=== PATIENT | male | born 1950 | race Caucasian/White ===

== ENCOUNTER 2016-10-24 15:45 | Emergency (ER) | payer OTHER ==
[~2016-10-24 15:45] MED LIST: Sodium Chloride 0.9% 1,000 ML BAG ONE
[2016-10-24 17:09] LABS: #Basophils 0.1 thou/uL (0.0-0.2); #Eosinphils 0.3 thou/uL (0.0-0.7); #Lymphocytes 3.2 thou/uL (1.20-3.40); #Monocytes 0.7 thou/uL (0.11-0.59); #Neutrophils 4.7 thou/uL (1.40-6.50); %Basophils 1.3 % (0.0-1.0); %Eosinophils 2.9 % (0.0-10.0); %Lymphocytes 35.4 % (21.0-51.0); %Monocytes 7.2 % (0.0-10.0); %Neutrophils 53.1 % (42.0-75.0); Hemoglobin 16.3 g/dL (14.0-18.0); Mean Corpuscular HGB CONC 33.9 g/dL (32.0-36.0); Mean Corpuscular Hemoglobin 29.9 pg (27.0-31.0); Mean Corpuscular Volume 88.3 fl (80.0-94.0); Mean Platelet Volume 6.5 fL (7.4-10.4); Platelet Count 339 thou/uL (130-400); Red Blood Cell (RBC) Count 5.45 mill/uL (4.70-6.10); White Blood Cell (WBC) Count 8.9 thou/uL (4.8-10.8)
[2016-10-24 17:20] LABS: ALT (SGPT) 21 U/L (8-55); AST (SGOT) 14 U/L (5-34); Albumin 4.4 g/dL (3.4-4.8); Alkaline Phosphatase 123 U/L (40-150); Anion Gap 16 mmol/L (10-20); BUN (Urea Nitrogen) 12 mg/dL (8.4-25.7); CK (CPK) 64 U/L (30-200); Calc. Creatinine Clearance 0 mL/min (70-130); Calcium 9.6 mg/dL (7.8-10.44); Carbon Dioxide 27 mmol/L (23-31); Chloride 98 mmol/L (98-107); Estimated GFR-MDRD Greater than 90; Globulin 3.1 g/dL (2.4-3.5); Glucose 103 mg/dL (80-115); Potassium 3.6 mmol/L (3.5-5.1); Protein, Total 7.5 g/dL (5.8-8.1); Sodium 137 mmol/L (136-145)
[2016-10-24 17:28] LABS: CKMB 0.8 ng/mL (0-6.6)
[2016-10-24 18:09] LABS: Bilirubin Negative (Negative); Blood, Urine Negative (Negative); Clarity Cloudy (Clear); Glucose, Urine (Dipstick) Negative (Negative); Leukocyte Negative (Negative); Nitrite Negative (Negative); Protein, Urine (Dipstick) Trace mg/dL (Neg-Trace); Specific Gravity, Urine 1.015 (1.005-1.030); pH, Urine 7.5 (5.0-9.0)
== END 2016-10-24 18:10 | disposition home or self-care (01) ==
LOC: MADERS 15:45
DX: H81.13 Benign paroxysmal vertigo, bilateral (principal); I25.2 Old myocardial infarction; E11.9 Type 2 diabetes mellitus without complications; I10 Essential (primary) hypertension; I73.9 Peripheral vascular disease, unspecified; J44.9 Chronic obstructive pulmonary disease, unspecified; G62.9 Polyneuropathy, unspecified; F17.210 Nicotine dependence, cigarettes, uncomplicated; Z86.73 Personal history of transient ischemic attack (TIA), and cerebral infarction without residual deficits; Z85.038 Personal history of other malignant neoplasm of large intestine; Z92.21 Personal history of antineoplastic chemotherapy; Z79.84 Long term (current) use of oral hypoglycemic drugs; Z79.899 Other long term (current) drug therapy; Z79.02 Long term (current) use of antithrombotics/antiplatelets
CPT/HCPCS: 36416; 80053; 81003; 82550; 82553; 84484; 85025; 93005; 96360; 36415-59; J7050

== ENCOUNTER 2017-07-08 11:10 | Emergency (ER) | payer OTHER ==
[2017-07-08] MEDS ORDERED: Acetaminophen 325 MG TAB ONE (11:32)
[2017-07-08] MEDS ORDERED: HYDROcodone/Acetaminophen 10/325 mg Tablet ONE (11:32)
--- NOTE | 2017-07-08 12:19 | RAD ---
RIGHT HUMERUS 2 VIEWS: History Fall. COMPARISON: None. FINDINGS: No acute displaced fracture or malalignment. There appears to be some mild soft tissue swelling of t he shoulder. Visualized clavicle and ribs are intact. IMPRESSION: No acute displaced fracture. POS: [facility]
== END 2017-07-08 12:10 | disposition home or self-care (01) ==
LOC: MADERS 11:10
DX: S40.011A Contusion of right shoulder, initial encounter (principal); I25.10 Atherosclerotic heart disease of native coronary artery without angina pectoris; I25.2 Old myocardial infarction; E11.40 Type 2 diabetes mellitus with diabetic neuropathy, unspecified; I10 Essential (primary) hypertension; J44.9 Chronic obstructive pulmonary disease, unspecified; F43.10 Post-traumatic stress disorder, unspecified; F17.210 Nicotine dependence, cigarettes, uncomplicated; Z86.73 Personal history of transient ischemic attack (TIA), and cerebral infarction without residual deficits; Z85.038 Personal history of other malignant neoplasm of large intestine; Z79.02 Long term (current) use of antithrombotics/antiplatelets; Z79.84 Long term (current) use of oral hypoglycemic drugs; Z79.899 Other long term (current) drug therapy; W06.XXXA Fall from bed, initial encounter

== ENCOUNTER 2018-02-14 12:03 | Emergency (ER) | payer OTHER ==
--- NOTE | 2018-02-14 13:32 | RAD ---
SINGLE VIEW OF THE CHEST AND RIGHT RIB SERIES: 02/14/18 COMPARISON: None. HISTORY: Fall one week ago with right lateral rib pain. FINDINGS: A single view of the chest and multiple views of the right ribs were performed. There is a normal si ed cardiomediastinal silhouette. There is no evidence of consolidation, mass, or pleural effusion. Multiple views of the right ribs shows no evidence of acute displaced right rib fracture. No underlyi ng pleural thickening or pneumothorax are seen on the right. There are multiple remote left rib fract ures seen on the chest radiograph. IMPRESSION: No evidence of acute displaced right rib fracture. POS: [facility]
== END 2018-02-14 12:55 | disposition home or self-care (01) ==
LOC: MADERS 12:03
DX: S20.211A Contusion of right front wall of thorax, initial encounter (principal); I25.2 Old myocardial infarction; Z86.73 Personal history of transient ischemic attack (TIA), and cerebral infarction without residual deficits; E11.9 Type 2 diabetes mellitus without complications; J44.9 Chronic obstructive pulmonary disease, unspecified; F43.10 Post-traumatic stress disorder, unspecified; F17.210 Nicotine dependence, cigarettes, uncomplicated; Z79.84 Long term (current) use of oral hypoglycemic drugs; Z79.899 Other long term (current) drug therapy; W22.8XXA Striking against or struck by other objects, initial encounter

== ENCOUNTER 2018-06-05 10:33 | Emergency (ER) | payer OTHER, MEDICARE ==
[2018-06-05] MEDS ORDERED: HYDROcodone/Acetaminophen 5/325 mg Tablet ONE (10:58)
--- NOTE | 2018-06-05 11:09 | RAD ---
XR Shoulder Rt 3 View STANDARD: 06/05/2018 10:52 AM CLINICAL INDICATION: Pain related to fall COMPARISON: 07/19/2017 FINDINGS: Fracture:No fracture. Arthropathy:Moderate arthropathy. Incidental findings:None of significance. IMPRESSION: 1. No acute osseous abnormality.
--- NOTE | 2018-06-05 11:12 | RAD ---
XR Humerus Rt 2 View STANDARD HISTORY:Fall with arm pain COMPARISON: None. FINDINGS: There are no signs of fracture or dislocation. The humeral head is high riding. This would suggest the presence of a chronic underlying rotator cuff injury. IMPRESSION: No evidence of fracture.
--- NOTE | 2018-06-05 12:11 | RAD ---
PA AND LATERAL VIEWS CHEST: Date: 06/05/18 HISTORY: Injury, fall, chest pain. FINDINGS: Comparison made with exam of 02/14/18. The heart size is normal. The aorta is tortuous. Chronic changes in the lungs are again seen. Old lef t-sided rib fractures are redemonstrated. No focal areas of consolidation, pneumothoraces, or pleural effusions are seen. There are degenerative changes in the spine. IMPRESSION: No acute process. POS: [facility]
== END 2018-06-05 11:40 | disposition home or self-care (01) ==
LOC: MADERS 10:33
DX: S43.401A Unspecified sprain of right shoulder joint, initial encounter (principal); Z79.899 Other long term (current) drug therapy; Z79.84 Long term (current) use of oral hypoglycemic drugs; W19.XXXA Unspecified fall, initial encounter
CPT/HCPCS: 71046

== ENCOUNTER 2018-06-27 13:34 | Emergency (ER) | payer OTHER ==
--- NOTE | 2018-06-27 14:59 | RAD ---
LEFT SHOULDER 3 VIEWS: HISTORY: Injury, left shoulder pain FINDINGS: Degenerative changes are present. No acute fracture or dislocation is identified. Remote left-sided rib fractures are again seen as on 01/21/2016.
[2018-06-27] MEDS ORDERED: HYDROcodone/Acetaminophen 5/325 mg Tablet ONE (15:42)
--- NOTE | 2018-06-27 16:24 | CT ---
CT CHEST WITHOUT CONTRAST: 06/27/18 HISTORY: Injury. Chest pain. COMPARISON: LDCT dated 06/18/18. FINDINGS: Absence of IV contrast reduces the sensitivity of the exam particularly for evaluation of mediastinal , hilar and vascular structures. Possibility of vascular injury cannot be excluded on this study. No pneumothoraces, lobar consolidation/pulmonary contusions, pleural or pericardial effusions are see n. No mediastinal hematoma is identified. There are vascular calcifications without evidence of aneurysmal dilatation of the thoracic aorta. Ol d bilateral rib fractures are again seen. The left adrenal adenoma is stable. There are degenerative changes in the spine. IMPRESSION: Exam limited due to absence of IV contrast. No definite acute intrathoracic abnormalities are seen (v ascular injury not completely excluded). POS: [facility]
== END 2018-06-27 16:30 | disposition home or self-care (01) ==
LOC: MADERS 13:34
DX: S29.011A Strain of muscle and tendon of front wall of thorax, initial encounter (principal); S43.402A Unspecified sprain of left shoulder joint, initial encounter; I25.10 Atherosclerotic heart disease of native coronary artery without angina pectoris; E11.9 Type 2 diabetes mellitus without complications; I10 Essential (primary) hypertension; F43.10 Post-traumatic stress disorder, unspecified; F17.210 Nicotine dependence, cigarettes, uncomplicated; Z79.899 Other long term (current) drug therapy; Z79.84 Long term (current) use of oral hypoglycemic drugs; W19.XXXA Unspecified fall, initial encounter
CPT/HCPCS: 71250

== ENCOUNTER 2018-09-06 10:00 | Emergency (ER) | payer OTHER, SELFPAY ==
[~2018-09-06 10:00] MED LIST changes: +Iopamidol 370 76% 125 ML VIAL FS ONE; -Sodium Chloride 0.9% 1,000 ML BAG ONE
[2018-09-06 10:36] LABS: #Basophils 0.2 thou/uL (0.0-0.2); #Eosinphils 0.3 thou/uL (0.0-0.7); #Lymphocytes 2.6 thou/uL (1.20-3.40); #Monocytes 0.9 thou/uL (0.11-0.59); #Neutrophils 7.7 thou/uL (1.40-6.50); %Basophils 1.3 % (0.0-1.0); %Eosinophils 2.8 % (0.0-10.0); %Lymphocytes 21.9 % (21.0-51.0); %Monocytes 7.9 % (0.0-10.0); Hemoglobin 14.8 g/dL (14.0-18.0); Mean Corpuscular Hemoglobin 28.8 pg (27.0-31.0); Mean Corpuscular Volume 87.3 fL (78.0-98.0); Mean Platelet Volume 6.1 fL (7.4-10.4); Platelet Count 349 thou/uL (130-400); RBC Distribution Width 13.1 % (11.5-14.5); Red Blood Cell (RBC) Count 5.13 mill/uL (4.70-6.10); White Blood Cell (WBC) Count 11.6 thou/uL (4.8-10.8)
[2018-09-06 10:50] LABS: ALT (SGPT) 14 U/L (8-55); AST (SGOT) 15 U/L (5-34); Albumin 4.2 g/dL (3.4-4.8); Alkaline Phosphatase 105 U/L (40-150); Anion Gap 17 mmol/L (10-20); BUN (Urea Nitrogen) 12 mg/dL (8.4-25.7); Bilirubin, Total 0.7 mg/dL (0.2-1.2); Calc. Creatinine Clearance 0 mL/min (70-130); Calcium 9.2 mg/dL (7.8-10.44); Carbon Dioxide 27 mmol/L (23-31); Chloride 100 mmol/L (98-107); Estimated GFR-MDRD 88; Globulin 2.6 g/dL (2.4-3.5); Glucose 77 mg/dL (80-115); Potassium 3.9 mmol/L (3.5-5.1); Protein, Total 6.8 g/dL (5.8-8.1); Sodium 140 mmol/L (136-145)
--- NOTE | 2018-09-06 11:14 | CT ---
CT OF BRAIN PERFORMED WITHOUT CONTRAST ENHANCEMENT: HISTORY: Right-sided headache, right leg weakness. This was done per stroke protocol. FINDINGS: There is generalized ventricular and sulcal prominence . There is decreased attenuation of the perive ntricular white matter. There are no signs of intracerebral hemorrhage or extraaxial fluid collectio ns. Mastoid air cells are clear. Mucosal disease is seen within the visualized left maxillary sinus and bilateral ethmoid air cells. IMPRESSION: No acute intracranial abnormalities. POS: [facility]
--- NOTE | 2018-09-06 11:46 | CT ---
CT angiography of head and neck performed with intravenous contrast enhancement with 3-D reconstructi ons: HISTORY: Stroke symptoms right-sided weakness. COMPARISON: CT done earlier. FINDINGS: The lung apices are clear of any infiltrative process. Thyroid gland appears unremarkable v ocal cord region is normal in appearance. Parapharyngeal spaces are clear. Parotid and submandibular glands appear unremarkable. CT angiography of neck: There is some motion present at the aortic arch which makes assessment origin of the left internal carotid artery difficult there may be some mild narrowing. There is a separate origin of left common carotid artery. The right vertebral is slightly larger as compared to the left. On the right side the right common carotid artery is normal in appearance with some moderate plaque f ormation at the origin of the internal carotid artery, the density of the calcification makes it difficult to assess stenosis but it appears to be only mild narrowing by nascent criteria. No externa l carotid stenosis. On the left side there is also atherosclerotic plaque at the origin left internal carotid artery but no significant stenosis. CT angiography of brain: Anterior middle cerebral arteries and their branches appear unremarkable. Th e basilar artery is normal in appearance there are patent posterior communicators bilaterally. Posterior cerebral arteries appear unremarkable IMPRESSION: 1. No evidence of significant stenosis of either internal carotid artery by nascent criteria. Mild ca lcified plaque formation is seen bilaterally more so on the right. 2. Normal intracranial circulation no evidence of intraluminal thrombus.
== END 2018-09-06 11:21 | disposition short-term general hospital (02) ==
LOC: MADERS 10:00
DX: I63.9 Cerebral infarction, unspecified (principal); I25.10 Atherosclerotic heart disease of native coronary artery without angina pectoris; E11.9 Type 2 diabetes mellitus without complications; I10 Essential (primary) hypertension; F43.10 Post-traumatic stress disorder, unspecified; F17.210 Nicotine dependence, cigarettes, uncomplicated
CPT/HCPCS: 36416; 70450; 70496; 70498; 80053; 84484; 85025; 85610; 85730; 93005; 96365; 96376; J2997; Q9967

== ENCOUNTER 2018-10-22 09:10 | Emergency (ER) | payer OTHER ==
[2018-10-22] MEDS ORDERED: Promethazine HCl 25 MG/ML VIAL ONE (09:39)
[2018-10-22] MEDS ORDERED: Sodium Chloride 0.9% 1,000 ML ONE (09:39)
[2018-10-22] MEDS ORDERED: Fentanyl 100 MCG/2 ML VIAL ONE (09:39)
[2018-10-22] MEDS ORDERED: Sodium Chloride 0.9% 100 ML ONE (09:39)
[2018-10-22 09:41] LABS: #Basophils 0.2 thou/uL (0.0-0.2); #Eosinphils 0.2 thou/uL (0.0-0.7); #Lymphocytes 2.3 thou/uL (1.20-3.40); #Monocytes 0.9 thou/uL (0.11-0.59); #Neutrophils 11.8 thou/uL (1.40-6.50); %Lymphocytes 14.8 % (21.0-51.0); %Monocytes 5.8 % (0.0-10.0); %Neutrophils 77.4 % (42.0-75.0); Hemoglobin 15.8 g/dL (14.0-18.0); Mean Corpuscular HGB CONC 32.2 g/dL (32.0-36.0); Mean Corpuscular Hemoglobin 28.5 pg (27.0-31.0); Mean Corpuscular Volume 88.7 fL (78.0-98.0); Mean Platelet Volume 5.5 fL (7.4-10.4); Platelet Count 388 thou/uL (130-400); RBC Distribution Width 13.9 % (11.5-14.5); Red Blood Cell (RBC) Count 5.54 mill/uL (4.70-6.10); White Blood Cell (WBC) Count 15.3 thou/uL (4.8-10.8)
[2018-10-22 10:10] LABS: ALT (SGPT) 17 U/L (8-55); AST (SGOT) 15 U/L (5-34); Albumin 4.5 g/dL (3.4-4.8); Alkaline Phosphatase 106 U/L (40-150); Anion Gap 18 mmol/L (10-20); BUN (Urea Nitrogen) 16 mg/dL (8.4-25.7); Bilirubin, Total 0.6 mg/dL (0.2-1.2); Calc. Creatinine Clearance 0 mL/min (70-130); Calcium 9.9 mg/dL (7.8-10.44); Carbon Dioxide 29 mmol/L (23-31); Chloride 96 mmol/L (98-107); Estimated GFR-MDRD 58; Glucose 179 mg/dL (80-115); Protein, Total 7.5 g/dL (5.8-8.1); Sodium 138 mmol/L (136-145)
[2018-10-22] MEDS ORDERED: Iopamidol 370 76% 100 ML VIAL ONE (11:16)
[2018-10-22 11:44] LABS: Bilirubin Negative (Negative); Blood, Urine Large (Negative); Clarity Hazy (Clear); Glucose, Urine (Dipstick) Negative (Negative); Leukocyte Negative (Negative); Nitrite Negative (Negative); Protein, Urine (Dipstick) 100 mg/dL (Neg-Trace)
[2018-10-22 11:45] LABS: Bacteria/HPF 1+ HPF (None Seen); RBC/HPF Greater than 50 HPF (0-3); Squamous Epithelial 0-3 HPF (0-3); WBC/HPF 0-3 HPF (0-3)
--- NOTE | 2018-10-22 12:05 | CT ---
EXAM: Abdomen and pelvic CT scan with contrast: HISTORY: Abdominal pain, suprapubic pain COMPARISON: None FINDINGS: The visualized lung bases are clear. Liver: Unremarkable. Gallbladder:Unremarkable. Pancreas:Unremarkable Spleen:Unremarkable. Adrenal glands:Stable left adrenal nodule. Kidneys:Small nonobstructing left lower pole renal calculus. Numerous renal vascular calcifications b ilaterally. Moderate right renal hydronephrosis with prominent perirenal and periureteral fat stranding secondary to a high-grade obstruction from a small 0.3 cm faint mid right ureteral calculus. Evidence for bilateral renal cysts. No evidence for bowel obstruction. No CT evidence for acute appendicitis. The urinary bladder is unremarkable. Reproductive system:Unremarkable Enlarged prostate gland. Fat-containing bilateral inguinal hernias. Fairly extensive bilateral arterial vascular calcification with some stenotic changes of the common i liac arteries, in particular. IMPRESSION: High-grade obstructing small faint 0.3 cm calculus in the mid right ureter with prominent perirenal a nd periureteral fat stranding. Other findings as above.
[2018-10-22] MEDS ORDERED: HYDROcodone/Acetaminophen 10/325 mg Tablet ONE (12:12)
== END 2018-10-22 12:30 | disposition home or self-care (01) ==
LOC: MADERS 09:10
DX: N13.2 Hydronephrosis with renal and ureteral calculous obstruction (principal); E11.9 Type 2 diabetes mellitus without complications; I25.10 Atherosclerotic heart disease of native coronary artery without angina pectoris; I10 Essential (primary) hypertension; F43.10 Post-traumatic stress disorder, unspecified; F17.210 Nicotine dependence, cigarettes, uncomplicated; Z86.73 Personal history of transient ischemic attack (TIA), and cerebral infarction without residual deficits; Z79.899 Other long term (current) drug therapy; Z79.84 Long term (current) use of oral hypoglycemic drugs
CPT/HCPCS: 36415; 74177; 80053; 81003; 81015; 83605; 83880; 84484; 85025; 93005; 94760; 96361; 96374; 96375; J2550; J3010; J3490; J7050; Q9967

== ENCOUNTER 2018-11-22 16:19 | Emergency (ER) | payer OTHER ==
[2018-11-22] MEDS ORDERED: Ketorolac Tromethamine 30 MG/ML VIAL ONE (16:54)
[2018-11-22] MEDS ORDERED: Sodium Chloride 0.9% 1,000 ML ONE ×2 (16:54→18:54)
[2018-11-22] MEDS ORDERED: Ondansetron PF 4 MG/2 ML Vial ONE (16:54)
[2018-11-22] MEDS ORDERED: Tamsulosin HCl 0.4 MG CAP ONE (16:54)
[2018-11-22 17:07] LABS: Eosinophils 4 % (0-10); Hemoglobin 15.5 g/dL (14.0-18.0); Lymphocytes 42 % (21-51); MDiff Complete? YES; Mean Corpuscular HGB CONC 32.5 g/dL (32.0-36.0); Mean Corpuscular Hemoglobin 28.6 pg (27.0-31.0); Mean Corpuscular Volume 88.3 fL (78.0-98.0); Mean Platelet Volume 7.4 fL (7.4-10.4); Monocytes 9 % (0-10); Neutrophil 43 % (42-75); Platelet Count 403 thou/uL (130-400); Platelet Morphology Comment Appears Increased; RBC Distribution Width 13.9 % (11.5-14.5); Reactive Lymphocytes 2 % (0-10); Red Blood Cell (RBC) Count 5.41 mill/uL (4.70-6.10); White Blood Cell (WBC) Count 8.7 thou/uL (4.8-10.8)
[2018-11-22 17:12] LABS: ALT (SGPT) 10 U/L (8-55); AST (SGOT) 11 U/L (5-34); Albumin 4.4 g/dL (3.4-4.8); Alkaline Phosphatase 110 U/L (40-110); Anion Gap 19 mmol/L (10-20); BUN (Urea Nitrogen) 9 mg/dL (8.4-25.7); Bilirubin, Total 0.5 mg/dL (0.2-1.2); Calc. Creatinine Clearance 0 mL/min (70-130); Calcium 10.1 mg/dL (7.8-10.44); Carbon Dioxide 24 mmol/L (23-31); Chloride 100 mmol/L (98-107); Estimated GFR-MDRD 83; Globulin 3.1 g/dL (2.4-3.5); Glucose 95 mg/dL (80-115); Protein, Total 7.5 g/dL (5.8-8.1); Sodium 139 mmol/L (136-145)
--- NOTE | 2018-11-22 17:30 | CT ---
CT ABDOMEN AND PELVIS WITHOUT CONTRAST: 11/22/18 HISTORY: Pain. Comparison is made to recent CT abdomen and pelvis, 10/22/18. That exam revealed a faint tiny calculus in the mid right ureter producing right hydronephrosis. FINDINGS: Lung bases clear. Liver, spleen, and pancreas unremarkable. Adrenal glands again show a nodule involving the left adrenal. This has been previously described and measures approximately 1.4 cm. Densities would indicate a benign adenoma. Review of the kidneys today shows no evidence of hydronephrosis. The obstructive changes noted on the prior exam are no longer present. There are vascular calcifications in the right renal pelvis; howev er, no definite calculus identified. The urinary bladder is mildly distended and unremarkable. Small bowel loops normal caliber. Colon unremarkable. Aorta is calcified and normal caliber. Mild pro static hypertrophy again noted. There are fat containing inguinal hernias slightly larger on the right. These are stable in appearanc e. IMPRESSION: No evidence of urinary tract obstruction or ureteral calcification today. The obstructive changes on the right noted previously are no longer present. No acute process identified on today's study. POS: [facility]
[2018-11-22] MEDS ORDERED: Morphine 4 MG/ML VIAL ONE (19:45)
[2018-11-22] MEDS ORDERED: cefTRIAXone\\ROCEPHIN 1 GM VIAL ONE (20:48)
[2018-11-22] MEDS ORDERED: Sodium Chloride 0.9% 100 ML ONE (20:48)
== END 2018-11-22 21:20 | disposition home or self-care (01) ==
LOC: MADERS 16:19
DX: N39.0 Urinary tract infection, site not specified (principal); N40.0 Benign prostatic hyperplasia without lower urinary tract symptoms; I25.10 Atherosclerotic heart disease of native coronary artery without angina pectoris; E11.9 Type 2 diabetes mellitus without complications; I10 Essential (primary) hypertension; F43.10 Post-traumatic stress disorder, unspecified; F17.210 Nicotine dependence, cigarettes, uncomplicated; Z79.01 Long term (current) use of anticoagulants; Z79.899 Other long term (current) drug therapy; Z85.038 Personal history of other malignant neoplasm of large intestine; Z86.73 Personal history of transient ischemic attack (TIA), and cerebral infarction without residual deficits; Z79.84 Long term (current) use of oral hypoglycemic drugs
CPT/HCPCS: 74176; 80053; 85025; 96361; 96374; 96375; J0696; J1885; J2270; J2405; J3490; J7050

== ENCOUNTER 2019-10-23 10:21 | Emergency (ER) | payer OTHER ==
[2019-10-23 10:40] LABS: #Basophils 0.1 thou/uL (0.0-0.2); #Eosinphils 0.4 thou/uL (0.0-0.7); #Lymphocytes 2.4 thou/uL (1.20-3.40); #Monocytes 0.7 thou/uL (0.11-0.59); #Neutrophils 4.8 thou/uL (1.40-6.50); %Basophils 1.6 % (0.0-1.0); %Eosinophils 4.5 % (0.0-10.0); %Lymphocytes 28.2 % (21.0-51.0); %Monocytes 8.2 % (0.0-10.0); %Neutrophils 57.4 % (42.0-75.0); Hemoglobin 15.1 g/dL (14.0-18.0); Mean Corpuscular HGB CONC 31.6 g/dL (32.0-36.0); Mean Corpuscular Hemoglobin 28.3 pg (27.0-31.0); Mean Corpuscular Volume 89.3 fL (78.0-98.0); Mean Platelet Volume 6.4 fL (7.4-10.4); Platelet Count 389 thou/uL (130-400); RBC Distribution Width 13.2 % (11.5-14.5); Red Blood Cell (RBC) Count 5.34 mill/uL (4.70-6.10); White Blood Cell (WBC) Count 8.3 thou/uL (4.8-10.8)
[2019-10-23 10:46] LABS: INR-International Normal Ratio 0.9; PTT 28.2 sec (22.9-36.1); Prothrombin Time 11.8 sec (12.0-14.7)
[2019-10-23 10:56] LABS: ALT (SGPT) 15 U/L (8-55); AST (SGOT) 10 U/L (5-34); Albumin 4.4 g/dL (3.4-4.8); Alkaline Phosphatase 106 U/L (40-110); Anion Gap 20 mmol/L (10-20); BUN (Urea Nitrogen) 12 mg/dL (8.4-25.7); Bilirubin, Total 0.6 mg/dL (0.2-1.2); Calc. Creatinine Clearance 0 mL/min (70-130); Calcium 9.4 mg/dL (7.8-10.44); Carbon Dioxide 26 mmol/L (23-31); Chloride 95 mmol/L (98-107); Estimated GFR-MDRD 80; Globulin 2.9 g/dL (2.4-3.5); Glucose 91 mg/dL (80-115); Potassium 3.9 mmol/L (3.5-5.1); Protein, Total 7.3 g/dL (5.8-8.1); Sodium 137 mmol/L (136-145)
--- NOTE | 2019-10-23 10:56 | CT ---
CT head noncontrast HISTORY: Left-sided weakness. Altered mental status. COMPARISON: 09/06/2018. FINDINGS: There is no evidence of acute intracranial hemorrhage or infarct. Prominent chronic ischemi c small vessel disease throughout the periventricular white matter. 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 There is no mass effect or shift of midline structures. Chronic appearing mucosal thickening and dystrophic calcification of the left maxillary sinus with ci rcumferential wall thickening. IMPRESSION : Chronic-type findings are stable. No acute intracranial abnormalities are demonstrated.
[2019-10-23] MEDS ORDERED: Aspirin Chewable 81 MG TAB ONE (11:11)
[2019-10-23] MEDS ORDERED: Acetaminophen 500 MG TAB ONE (11:11)
--- NOTE | 2019-10-23 11:18 | RAD ---
CHEST 1 VIEW: Date: 10/23/2019 HISTORY: Hypoglycemia. COMPARISON: Chest radiograph dated 09/06/2018. FINDINGS: Multiple old left-sided rib fractures. Mild fibrosis in the lung bases. No confluent air space consol idation, pneumothorax, or effusion. No acute osseous abnormality. Cardiac silhouette and mediastinal contours are within normal limits for technique. IMPRESSION: No acute intrathoracic abnormality. POS: [facility]
[2019-10-23 12:26] LABS: Amphetamine Not Detected (NotDetected); Barbiturates Screen Not Detected (NotDetected); Benzodiazepine Screen Not Detected (NotDetected); Cocaine Metabolite Screen Not Detected (NotDetected); Medtox Control Line Valid? VALID (VALID); Methadone Not Detected (NotDetected); Methamphetamine Not Detected (NotDetected); Opiate Screen Not Detected (NotDetected); Oxycodone Screen Not Detected (NotDetected); Phencyclidine (PCP) Not Detected (NotDetected); THC/Cannabinoid Screen Detected (NotDetected); Tricyclic Screen Detected (NotDetected)
[2019-10-23 12:31] LABS: Clarity Hazy (Clear); Leukocyte Negative (Negative); Nitrite Negative (Negative); Specific Gravity, Urine 1.015 (1.005-1.030); pH, Urine 6.5 (5.0-9.0)
[2019-10-23 12:32] LABS: Bilirubin Negative (Negative); Blood, Urine Large (Negative); Glucose, Urine (Dipstick) Negative (Negative); Ketone, Urine Negative (Negative); Protein, Urine (Dipstick) Negative (Neg-Trace); Urobilinogen 0.2 mg/dL (Less than 2)
[2019-10-23 12:33] LABS: Bacteria/HPF Rare-Few HPF (None Seen); RBC/HPF 21-50 HPF (0-3); Squamous Epithelial 0-3 HPF (0-3); WBC/HPF 0-3 HPF (0-3)
--- NOTE | 2019-10-26 14:10 | CT ---
CT arteriogram neck with IV contrast and 3-D imaging CT arteriogram head with IV contrast and 3-D imaging HISTORY: Left-sided weakness. FINDINGS: There is good contrast opacification of the aortic arch with normal branching of the great vessels. Calcification at the arch and at each carotid bifurcation. Significant motion artifact along the neck level. Short segment focus of approximately 50% stenosis within the proximal right ICA . No stenosis on the left. [place] is intact. Good flow into each cerebral and cerebellar system. No enhancing brain le sions apparent. Chronic ischemic small vessel disease again demonstrated. Chronic opacification of left maxillary sinus. Inferior most images show old healed left upper rib fractures. IMPRESSION : No acute vascular abnormalities are demonstrated. Atherosclerosis. Short segment focus of mild (approximately 50%) stenosis of the proximal left internal specialist al carotid artery. Findings were called to Dr. Garcia in the [place] emergency department at 1244 hours Code CR.
== END 2019-10-23 12:10 | disposition short-term general hospital (02) ==
LOC: MADERS 10:21
DX: E11.649 Type 2 diabetes mellitus with hypoglycemia without coma (principal); R53.1 Weakness; R29.704 NIHSS score 4; Z86.73 Personal history of transient ischemic attack (TIA), and cerebral infarction without residual deficits; I25.10 Atherosclerotic heart disease of native coronary artery without angina pectoris; F17.210 Nicotine dependence, cigarettes, uncomplicated; I10 Essential (primary) hypertension; F43.10 Post-traumatic stress disorder, unspecified; Z79.899 Other long term (current) drug therapy; Z79.84 Long term (current) use of oral hypoglycemic drugs
CPT/HCPCS: 36416; 70450; 70496; 71045; 80053; 80306; 81003; 81015; 83880; 84484; 85025; 85610; 85730; 93005; 94760; Q9967

== ENCOUNTER 2021-09-21 10:45 | Emergency (ER) | payer OTHER ==
[2021-09-21] MEDS ORDERED: HYDROcodone/Acetaminophen 5/325 mg Tablet ONE (11:49)
== END 2021-09-21 12:35 | disposition home or self-care (01) ==
LOC: MADERS 10:45
DX: S20.212A Contusion of left front wall of thorax, initial encounter (principal); I25.10 Atherosclerotic heart disease of native coronary artery without angina pectoris; E11.9 Type 2 diabetes mellitus without complications; I10 Essential (primary) hypertension; F17.210 Nicotine dependence, cigarettes, uncomplicated; Z79.899 Other long term (current) drug therapy; Z79.84 Long term (current) use of oral hypoglycemic drugs; W01.0XXA Fall on same level from slipping, tripping and stumbling without subsequent striking against object, initial encounter

== ENCOUNTER 2021-11-24 16:19 | Emergency (ER) | payer OTHER ==
[2021-11-24] MEDS ORDERED: Ketorolac Tromethamine 30 MG/ML VIAL ONE (16:40)
[2021-11-24] MEDS ORDERED: traMADol HCl 50 MG TAB ONE (16:40)
[2021-11-24] MEDS ORDERED: HYDROcodone/Acetaminophen 5/325 mg Tablet ONE (16:47)
== END 2021-11-24 17:05 | disposition home or self-care (01) ==
LOC: MADERS 16:19
DX: S46.011A Strain of muscle(s) and tendon(s) of the rotator cuff of right shoulder, initial encounter (principal); I25.10 Atherosclerotic heart disease of native coronary artery without angina pectoris; E11.9 Type 2 diabetes mellitus without complications; J44.9 Chronic obstructive pulmonary disease, unspecified; F17.210 Nicotine dependence, cigarettes, uncomplicated; Z79.899 Other long term (current) drug therapy; X58.XXXA Exposure to other specified factors, initial encounter
CPT/HCPCS: 96372; 99283; J1885

== ENCOUNTER 2022-10-19 11:45 | Emergency (ER) | payer OTHER ==
[2022-10-19] MEDS ORDERED: Sodium Chloride 0.9% 1,000 ML ONE (12:56)
[2022-10-19 13:04] LABS: #Basophils 0.1 thou/uL (0.0-0.2); #Eosinphils 0.2 thou/uL (0.0-0.7); #Lymphocytes 1.7 thou/uL (1.20-3.40); #Monocytes 0.4 thou/uL (0.11-0.59); #Neutrophils 6.8 thou/uL (1.40-6.50); %Basophils 1.6 % (0.0-1.0); %Eosinophils 2.5 % (0.0-10.0); %Lymphocytes 17.9 % (21.0-51.0); %Monocytes 4.7 % (0.0-10.0); %Neutrophils 73.3 % (42.0-75.0); Hematocrit 46.7 % (42.0-52.0); Hemoglobin 15.2 g/dL (14.0-18.0); Mean Corpuscular HGB CONC 32.7 g/dL (32.0-36.0); Mean Corpuscular Hemoglobin 28.9 pg (27.0-31.0); Mean Corpuscular Volume 88.4 fl (78.0-98.0); Mean Platelet Volume 7.3 fL (7.4-10.4); Platelet Count 411 10x3/uL (130-400); RBC Distribution Width 14.3 % (11.5-14.5); Red Blood Cell (RBC) Count 5.28 mill/uL (4.70-6.10); White Blood Cell (WBC) Count 9.3 10x3/uL (4.8-10.8)
[2022-10-19 13:36] LABS: ALT (SGPT) 13 U/L (8-55); AST (SGOT) 11 U/L (5-34); Albumin 4.5 g/dL (3.4-4.8); Alkaline Phosphatase 82 U/L (40-110); Anion Gap 17 mmol/L (10-20); BUN (Urea Nitrogen) 9 mg/dL (8.4-25.7); Bilirubin, Total 0.7 mg/dL (0.2-1.2); Calc. Creatinine Clearance 0 mL/min (70-130); Calcium 9.8 mg/dL (7.8-10.44); Carbon Dioxide 27 mmol/L (23-31); Chloride 96 mmol/L (98-107); Estimated GFR 94; Globulin 2.9 g/dL (2.4-3.5); Glucose 109 mg/dL (83-110); Lipase 22 U/L (8-78); Potassium 3.9 mmol/L (3.5-5.1); Protein, Total 7.4 g/dL (5.8-8.1); Sodium 136 mmol/L (136-145)
[2022-10-19] MEDS ORDERED: Iopamidol 370 76% 100 ML VIAL ONE (13:43)
[2022-10-19 14:31] LABS: Bilirubin Small (Negative); Blood, Urine Negative (Negative); Clarity Clear (Clear); Glucose, Urine (Dipstick) Negative (Negative); Ketone, Urine 15 mg/dL (Negative); Leukocyte Negative (Negative); Nitrite Negative (Negative); Protein, Urine (Dipstick) 100 mg/dL (Neg-Trace); pH, Urine 7.5 (5.0-9.0)
[2022-10-19 14:41] LABS: CAUTI Indications for Culture Dysuria,urgency,freq; RBC/HPF 0-3 HPF (0-3); WBC/HPF 0-3 HPF (0-3)
[2022-10-19 14:42] LABS: Bacteria/HPF Rare-Few HPF (None Seen); Yeast-Budding 1+ HPF (None Seen)
[2022-10-19 14:43] LABS: Urine Culture Reflex No No
== END 2022-10-19 14:45 | disposition home or self-care (01) ==
LOC: MADERS 11:45
DX: R11.2 Nausea with vomiting, unspecified (principal); I25.10 Atherosclerotic heart disease of native coronary artery without angina pectoris; E11.9 Type 2 diabetes mellitus without complications; I10 Essential (primary) hypertension; Z87.891 Personal history of nicotine dependence; Z79.84 Long term (current) use of oral hypoglycemic drugs; Z79.899 Other long term (current) drug therapy
CPT/HCPCS: 74177; 80053; 81001; 83605; 83690; 84484; 85025; 93005; 96360; J7050; Q9967

== ENCOUNTER 2022-11-07 11:22 | Emergency (ER) | payer OTHER | END 2022-11-07 12:42 | disposition home or self-care (01) | LOC: MADERS 11:22 | DX: L03.116 Cellulitis of left lower limb (principal); I73.9 Peripheral vascular disease, unspecified; I25.10 Atherosclerotic heart disease of native coronary artery without angina pectoris; E11.9 Type 2 diabetes mellitus without complications; I10 Essential (primary) hypertension; J44.9 Chronic obstructive pulmonary disease, unspecified; F17.210 Nicotine dependence, cigarettes, uncomplicated; Z79.84 Long term (current) use of oral hypoglycemic drugs; Z79.899 Other long term (current) drug therapy ==

== ENCOUNTER 2023-01-10 12:08 | Emergency (ER) | payer OTHER ==
[2023-01-10] MEDS ORDERED: Sodium Chloride 0.9% 0 ML ONE (13:29)
[2023-01-10] MEDS ORDERED: cefTRIAXone (ROCEPHIN) 2 GM VIAL ONE ×2 (13:29→14:08)
[2023-01-10] MEDS ORDERED: Boostrix 0.5 ML (Tdap) VIAL (>/=7 yrs of age) ONE (13:29)
[2023-01-10] MEDS ORDERED: Sodium Chloride 0.9% 250 ML 0 ML ONE (13:29)
[2023-01-10] MEDS ORDERED: Vancomycin 1 GM VIAL ONE (13:29)
[2023-01-10] MEDS ORDERED: Clindamycin 150 MG CAP ONE (14:07)
[2023-01-10] MEDS ORDERED: Lidocaine 1% PF 5 ML VIAL ONE (14:07)
[2023-01-10] MEDS ORDERED: Acetaminophen 500 MG TAB ONE (14:08)
[2023-01-10 14:59] LABS: #Basophils 0.1 thou/uL (0.0-0.2); #Eosinphils 0.5 thou/uL (0.0-0.7); #Lymphocytes 2.3 thou/uL (1.20-3.40); #Neutrophils 7.2 thou/uL (1.40-6.50); %Basophils 1.1 % (0.0-1.0); %Eosinophils 4.3 % (0.0-10.0); %Monocytes 8.6 % (0.0-10.0); %Neutrophils 65.1 % (42.0-75.0); Hemoglobin 13.7 g/dL (14.0-18.0); White Blood Cell (WBC) Count 11.1 10x3/uL (4.8-10.8)
[2023-01-10 15:07] LABS: Hematocrit 38.9 % (42.0-52.0); Mean Corpuscular HGB CONC 35.2 g/dL (32.0-36.0); Mean Corpuscular Hemoglobin 31.3 pg (27.0-31.0); Mean Corpuscular Volume 89.1 fl (78.0-98.0); Mean Platelet Volume 6.4 fL (7.4-10.4); Platelet Count 426 10x3/uL (130-400); RBC Distribution Width 13.7 % (11.5-14.5); Red Blood Cell (RBC) Count 4.36 mill/uL (4.70-6.10)
[2023-01-10 15:09] LABS: INR-International Normal Ratio 0.9; Prothrombin Time 12.6 sec (12.0-14.7)
[2023-01-10 15:19] LABS: CRP (Inflammatory) 2.68 mg/dL (= or < 0.5); Lipase 18 U/L (8-78); Magnesium 1.9 mg/dL (1.6-2.6)
[2023-01-10 15:22] LABS: ALT (SGPT) 8 U/L (8-55); AST (SGOT) 8 U/L (5-34); Albumin 4.3 g/dL (3.4-4.8); Alkaline Phosphatase 97 U/L (40-110); Anion Gap 20 mmol/L (10-20); BUN (Urea Nitrogen) 6 mg/dL (8.4-25.7); Bilirubin, Total 0.4 mg/dL (0.2-1.2); CK (CPK) 36 U/L (30-200); Calc. Creatinine Clearance 0 mL/min (70-130); Calcium 9.6 mg/dL (7.8-10.44); Carbon Dioxide 27 mmol/L (23-31); Chloride 93 mmol/L (98-107); Estimated GFR 93; Globulin 3.2 g/dL (2.4-3.5); Glucose 103 mg/dL (83-110); Potassium 3.9 mmol/L (3.5-5.1); Protein, Total 7.5 g/dL (5.8-8.1); Sodium 136 mmol/L (136-145)
[2023-01-10] MEDS ORDERED: Acetaminophen 325 MG TAB PO PRN (19:30)
[2023-01-10] MEDS ORDERED: Ondansetron PF 4 MG/2 ML Vial IVP PRN (19:30)
[2023-01-10] MEDS ORDERED: Ondansetron ODT 4 MG TAB SL PRN (19:30)
== END 2023-01-10 16:02 | disposition short-term general hospital (02) ==
LOC: MADERS 12:08
DX: L03.011 Cellulitis of right finger (principal); E11.9 Type 2 diabetes mellitus without complications; J44.9 Chronic obstructive pulmonary disease, unspecified; F17.210 Nicotine dependence, cigarettes, uncomplicated; Z79.899 Other long term (current) drug therapy; Z79.84 Long term (current) use of oral hypoglycemic drugs
CPT/HCPCS: 80053; 82550; 83605; 83690; 83735; 85025; 85610; 86140; 87040; 87070; 87077; 87186; 87205; 90471; 90715; 96372; J0696; J3370; J7050

== ENCOUNTER 2023-07-25 11:54 | Emergency (ER) | payer OTHER | END 2023-07-25 12:40 | disposition home or self-care (01) | LOC: MADERS 11:54 | DX: L03.116 Cellulitis of left lower limb (principal); J44.9 Chronic obstructive pulmonary disease, unspecified; E11.9 Type 2 diabetes mellitus without complications; I10 Essential (primary) hypertension; I25.10 Atherosclerotic heart disease of native coronary artery without angina pectoris; F17.210 Nicotine dependence, cigarettes, uncomplicated; Z79.84 Long term (current) use of oral hypoglycemic drugs; Z79.899 Other long term (current) drug therapy | CPT/HCPCS: 99283 ==

== ENCOUNTER 2023-08-05 13:16 | Emergency (ER) | payer OTHER | END 2023-08-05 14:05 | disposition home or self-care (01) | LOC: MADERS 13:16 | DX: L03.116 Cellulitis of left lower limb (principal); I10 Essential (primary) hypertension; E11.9 Type 2 diabetes mellitus without complications; F17.210 Nicotine dependence, cigarettes, uncomplicated; J44.9 Chronic obstructive pulmonary disease, unspecified; Z79.899 Other long term (current) drug therapy; Z79.84 Long term (current) use of oral hypoglycemic drugs | CPT/HCPCS: 99283 ==

== ENCOUNTER 2023-09-04 11:44 | Emergency (ER) | payer OTHER | END 2023-09-04 12:54 | disposition home or self-care (01) | LOC: MADERS 11:44 | DX: E86.0 Dehydration (principal); L98.9 Disorder of the skin and subcutaneous tissue, unspecified; I10 Essential (primary) hypertension; E11.9 Type 2 diabetes mellitus without complications; I25.10 Atherosclerotic heart disease of native coronary artery without angina pectoris; J44.9 Chronic obstructive pulmonary disease, unspecified; F17.210 Nicotine dependence, cigarettes, uncomplicated | CPT/HCPCS: 99284 ==

== ENCOUNTER 2023-09-16 12:00 | Emergency (ER) | payer OTHER ==
[~2023-09-16 12:00] MED LIST changes: +Iopamidol 370 76% 100 ML VIAL ONE; -Iopamidol 370 76% 125 ML VIAL FS ONE; +Sodium Chloride 0.9% 100 ML BAG ONE
[2023-09-16 12:35] LABS: INR-International Normal Ratio 0.9; Prothrombin Time 12.6 sec (12.0-14.7)
[2023-09-16 12:39] LABS: #Basophils 0.2 thou/uL (0.0-0.2); #Eosinphils 0.8 thou/uL (0.0-0.7); #Lymphocytes 2.8 thou/uL (1.20-3.40); #Monocytes 0.8 thou/uL (0.11-0.59); %Basophils 1.6 % (0.0-1.0); %Eosinophils 6.9 % (0.0-10.0); %Lymphocytes 24.1 % (21.0-51.0); %Monocytes 6.7 % (0.0-10.0); %Neutrophils 60.6 % (42.0-75.0); Hematocrit 44.2 % (42.0-52.0); Hemoglobin 13.2 g/dL (14.0-18.0); Hypochromia SLIGHT = 6-15 cells (100X) (0-5/hpf); MDiff Complete? YES; Mean Corpuscular HGB CONC 29.9 g/dL (32.0-36.0); Mean Corpuscular Hemoglobin 25.9 pg (27.0-31.0); Mean Corpuscular Volume 86.7 fl (78.0-98.0); Mean Platelet Volume 5.6 fL (7.4-10.4); Platelet Adequacy Comment Appears Increased; Platelet Count 467 10x3/uL (130-400); RBC Distribution Width 14.8 % (11.5-14.5); White Blood Cell (WBC) Count 11.6 10x3/uL (4.8-10.8)
[2023-09-16 12:46] LABS: ALT (SGPT) 12 U/L (8-55); AST (SGOT) 10 U/L (5-34); Alkaline Phosphatase 68 U/L (40-110); Anion Gap 20 mmol/L (10-20); BUN (Urea Nitrogen) 11 mg/dL (8.4-25.7); Bilirubin, Total 0.7 mg/dL (0.2-1.2); Calc. Creatinine Clearance 0 mL/min (70-130); Calcium 9.6 mg/dL (7.8-10.44); Carbon Dioxide 23 mmol/L (23-31); Chloride 100 mmol/L (98-107); Estimated GFR 92; Globulin 3.4 g/dL (2.4-3.5); Glucose 88 mg/dL (83-110); Potassium 3.8 mmol/L (3.5-5.1); Protein, Total 7.4 g/dL (5.8-8.1); Sodium 139 mmol/L (136-145)
[2023-09-16 12:47] LABS: Troponin I Less than 0.010 ng/mL (< 0.028)
[2023-09-16] MEDS ORDERED: Aspirin Chewable 81 MG TAB ONE (13:22)
[2023-09-16] MEDS ORDERED: Sodium Chloride 0.9% 1,000 ML ONE (13:22)
[2023-09-16 13:41] LABS: Bilirubin Negative (Negative); Blood, Urine Trace (Negative); Clarity Clear (Clear); Glucose, Urine (Dipstick) >=1000 mg/dL (Negative); Ketone, Urine Negative (Negative); Leukocyte Negative (Negative); Nitrite Negative (Negative); Protein, Urine (Dipstick) Negative (Neg-Trace); Urobilinogen 0.2 mg/dL (Less than 2)
[2023-09-16 13:54] LABS: Bacteria/HPF Rare-Few HPF (None Seen); CAUTI Indications for Culture Dysuria,urgency,freq; RBC/HPF 0-3 HPF (0-3); Squamous Epithelial 0-3 HPF (0-3); WBC/HPF None Seen HPF (0-3)
[2023-09-16 13:55] LABS: Urine Culture Reflex No No
== END 2023-09-16 19:49 | disposition short-term general hospital (02) ==
LOC: MADERS 12:00
DX: R42 Dizziness and giddiness (principal); E11.9 Type 2 diabetes mellitus without complications; I10 Essential (primary) hypertension; I25.10 Atherosclerotic heart disease of native coronary artery without angina pectoris; F17.210 Nicotine dependence, cigarettes, uncomplicated; Z79.84 Long term (current) use of oral hypoglycemic drugs; Z55.6 Problems related to health literacy; Z79.899 Other long term (current) drug therapy
CPT/HCPCS: 0042T; 36416; 70450; 71046; 80053; 81001; 84443; 84484; 85025; 85610; 85730; 93005; J7030; Q9967

== ENCOUNTER 2023-11-13 19:22 | Emergency (ER) | payer OTHER | END 2023-11-13 19:47 | disposition home or self-care (01) | LOC: MADERS 19:22 | DX: Z00.00 Encounter for general adult medical examination without abnormal findings (principal); I25.10 Atherosclerotic heart disease of native coronary artery without angina pectoris; I25.2 Old myocardial infarction; E11.9 Type 2 diabetes mellitus without complications; I10 Essential (primary) hypertension; J44.9 Chronic obstructive pulmonary disease, unspecified; F17.210 Nicotine dependence, cigarettes, uncomplicated; Z55.6 Problems related to health literacy; Z86.73 Personal history of transient ischemic attack (TIA), and cerebral infarction without residual deficits | CPT/HCPCS: 99282 ==

== ENCOUNTER 2023-12-14 14:47 | Emergency (ER) | payer OTHER ==
[2023-12-14] MEDS ORDERED: Sodium Chloride 0.9% 100 ML ONE (15:12)
[2023-12-14] MEDS ORDERED: Sodium Chloride 0.9% 1,000 ML ONE (15:12)
[2023-12-14] MEDS ORDERED: cefTRIAXone (ROCEPHIN) 2 GM VIAL ONE (15:12)
[2023-12-14] MEDS ORDERED: Midodrine HCl 5 MG TAB PO SCH (15:30)
[2023-12-14 15:34] LABS: #Basophils 0.1 thou/uL (0.0-0.2); #Eosinophils 0.5 thou/uL (0.0-0.7); #Lymphocytes 1.5 thou/uL (1.20-3.40); #Monocytes 0.5 thou/uL (0.11-0.59); #Neutrophils 7.5 thou/uL (1.40-6.50); %Basophils 1.1 % (0.0-1.0); %Eosinophils 4.9 % (0.0-10.0); %Lymphocytes 15.1 % (21.0-51.0); %Monocytes 5.1 % (0.0-10.0); %Neutrophils 73.8 % (42.0-75.0); Hematocrit 39.4 % (42.0-52.0); Hemoglobin 12.4 g/dL (14.0-18.0); Mean Corpuscular HGB CONC 31.5 g/dL (32.0-36.0); Mean Corpuscular Hemoglobin 27.7 pg (27.0-31.0); Mean Corpuscular Volume 88.1 fl (78.0-98.0); Mean Platelet Volume 6.8 fL (7.4-10.4); Platelet Count 352 10x3/uL (130-400); RBC Distribution Width 15.3 % (11.5-14.5); Red Blood Cell (RBC) Count 4.47 mill/uL (4.70-6.10); White Blood Cell (WBC) Count 10.2 10x3/uL (4.8-10.8)
[2023-12-14 15:39] LABS: Prothrombin Time 13.1 sec (12.0-14.7)
[2023-12-14 15:40] LABS: PTT 30.9 sec (22.9-36.1)
[2023-12-14 15:43] LABS: D-Dimer Test 0.87 mcg/mL (0.27-0.43)
[2023-12-14 15:48] LABS: ALT (SGPT) 8 U/L (8-55); AST (SGOT) 11 U/L (5-34); Albumin 3.1 g/dL (3.4-4.8); Alkaline Phosphatase 68 U/L (40-110); Anion Gap 19 mmol/L (10-20); BUN (Urea Nitrogen) 8 mg/dL (8.4-25.7); Bilirubin, Total 0.4 mg/dL (0.2-1.2); CK (CPK) 58 U/L (30-200); Calc. Creatinine Clearance 0 mL/min (70-130); Calcium 8.2 mg/dL (7.8-10.44); Carbon Dioxide 21 mmol/L (23-31); Chloride 104 mmol/L (98-107); Estimated GFR 90; Globulin 2.6 g/dL (2.4-3.5); Glucose 79 mg/dL (83-110); Potassium 4.3 mmol/L (3.5-5.1); Protein, Total 5.7 g/dL (5.8-8.1); Sodium 140 mmol/L (136-145)
[2023-12-14 15:49] LABS: Troponin I Less than 0.010 ng/mL (< 0.028)
[2023-12-14] MEDS ORDERED: Bacitracin 1 PK ONE (17:46)
[2023-12-14 19:08] LABS: Troponin I Less than 0.010 ng/mL (< 0.028)
[2023-12-14] MEDS ORDERED: Morphine 2 MG/ML VIAL ONE (19:49)
[2023-12-14 21:33] LABS: Bilirubin Negative (Negative); Blood, Urine Negative (Negative); Clarity Clear (Clear); Glucose, Urine (Dipstick) Negative (Negative); Ketone, Urine Negative (Negative); Leukocyte Negative (Negative); Nitrite Negative (Negative); Protein, Urine (Dipstick) Negative (Neg-Trace); Specific Gravity, Urine 1.015 (1.005-1.030); Urobilinogen 0.2 mg/dL (Less than 2); pH, Urine 5.5 (5.0-9.0)
[2023-12-14 21:34] LABS: CAUTI Indications for Culture Alt mental st,lethar; RBC/HPF 0-3 HPF (0-3); Squamous Epithelial 0-3 HPF (0-3); WBC/HPF 0-3 HPF (0-3)
[2023-12-14 21:35] LABS: Bacteria/HPF Rare-Few HPF (None Seen); Urine Culture Reflex No No
[2023-12-14 22:12] LABS: Troponin I Less than 0.010 ng/mL (< 0.028)
== END 2023-12-14 23:48 | disposition short-term general hospital (02) ==
LOC: MADERS 14:47
DX: R55 Syncope and collapse (principal); R57.9 Shock, unspecified; S92.322A Displaced fracture of second metatarsal bone, left foot, initial encounter for closed fracture; S92.332A Displaced fracture of third metatarsal bone, left foot, initial encounter for closed fracture; S92.345A Nondisplaced fracture of fourth metatarsal bone, left foot, initial encounter for closed fracture; S09.90XA Unspecified injury of head, initial encounter; S90.512A Abrasion, left ankle, initial encounter; F17.210 Nicotine dependence, cigarettes, uncomplicated; E11.9 Type 2 diabetes mellitus without complications; I10 Essential (primary) hypertension; I25.2 Old myocardial infarction; J44.9 Chronic obstructive pulmonary disease, unspecified; I25.10 Atherosclerotic heart disease of native coronary artery without angina pectoris; Z86.73 Personal history of transient ischemic attack (TIA), and cerebral infarction without residual deficits; W18.30XA Fall on same level, unspecified, initial encounter; Y92.009 Unspecified place in unspecified non-institutional (private) residence as the place of occurrence of the external cause
CPT/HCPCS: 28450; 28470; 36415; 70450; 71045; 71275; 72125; 72170; 80053; 81001; 82550; 83605; 83880; 84443; 84484; 85025; 85379; 85610; 85730; 87040; 93005; 94760; 96361; 96365; 96375; J0696; J2272; J7030; Q9967

== ENCOUNTER 2024-01-08 16:06 | Emergency (ER) | payer OTHER ==
[2024-01-08] MEDS ORDERED: HYDROcodone/Acetaminophen 10/325 mg Tablet ONE (17:15)
== END 2024-01-08 17:30 | disposition home or self-care (01) ==
LOC: MADERS 16:06
DX: M79.672 Pain in left foot (principal); E11.9 Type 2 diabetes mellitus without complications; I10 Essential (primary) hypertension; F17.210 Nicotine dependence, cigarettes, uncomplicated; Z79.899 Other long term (current) drug therapy; Z79.84 Long term (current) use of oral hypoglycemic drugs
CPT/HCPCS: 99283

== ENCOUNTER 2024-02-05 17:45 | Emergency (ER) | payer OTHER ==
[2024-02-05] MEDS ORDERED: Ondansetron ODT 4 MG TAB ONE (18:38)
[2024-02-05] MEDS ORDERED: Morphine 4 MG/ML VIAL ONE (18:38)
== END 2024-02-05 18:50 | disposition home or self-care (01) ==
LOC: MADERS 17:45
DX: M79.672 Pain in left foot (principal); E11.9 Type 2 diabetes mellitus without complications; I10 Essential (primary) hypertension; F17.210 Nicotine dependence, cigarettes, uncomplicated; Z87.81 Personal history of (healed) traumatic fracture
CPT/HCPCS: 96372; 99283; J2272; Q0162